=== PATIENT | male | born 1930 | race Caucasian/White ===

== ENCOUNTER → 2019-05-27 | Outpatient (CLI) | payer MEDICARE ==
--- NOTE | 2019-05-27 17:14 | PCVCIMAG ---
EXAM: BILATERAL LOWER EXTREMITY ARTERIAL DUPLEX INDICATION: Peripheral Arterial Disease. Leg pain. Nonhealing ulcer right lateral ankle. FINDINGS: Right Leg: Common femoral and profunda femoral arteries are patent. Superficial femoral artery is patent. Increased systolic velocity 162 cm/s mid jamul popliteal artery from 53 cm/sec consistent with 60-70% stenosis. Mid/distal anterior tibial artery is occluded. Peroneal and posterior tibial arteries are patent. Left Leg: Common femoral and profunda femoral arteries are patent. Superficial femoral artery and popliteal artery are patent. There is occlusion of the anterior and posterior tibial arteries. The peroneal artery is patent. 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 LOC:[id number]
== END | disposition home or self-care (01) ==
LOC: PCVCIMAG 14:40
PROVIDERS: ATTEND Emergency Medicine
DX: I73.9 Peripheral vascular disease, unspecified (principal); L97.319 Non-pressure chronic ulcer of right ankle with unspecified severity
CPT/HCPCS: 93925